=== PATIENT | female | born 1990 | race Caucasian/White ===

== ENCOUNTER → 2016-06-15 | Outpatient (REF) | payer OTHER | LOC: M LAB REF 17:00 | PROVIDERS: ATTEND Obstetrics & Gynecology | DX: Z11.3 Encounter for screening for infections with a predominantly sexual mode of transmission (principal) ==

== ENCOUNTER → 2018-08-29 | Outpatient (REF) | payer OTHER ==
[2018-08-29 20:18] LABS: HEMATOCRIT 42.5 % (36.0-47.0); HEMOGLOBIN 14.9 g/dl (12.0-15.5); MEAN CORPUSCULAR HEMOGLOBIN 32.9 pg (27.0-33.0); MEAN CORPUSCULAR HGB CONC 35.1 g/dl (32.0-36.5); MEAN CORPUSCULAR VOLUME 93.8 fl (80.0-96.0); PLATELET COUNT, AUTOMATED 238 10^3/uL (150-450); RED BLOOD COUNT 4.53 10^6/uL (4.00-5.40); WHITE BLOOD COUNT 7.8 10^3/uL (4.0-10.0)
[2018-08-29 20:20] LABS: HCG, SERUM QUANTITATIVE 16530 MIU/ML
[2018-08-30 10:21] LABS: RUBELLA IgG QUALITATIVE IMMUNE (IMMUNE)
[2018-08-30 10:50] LABS: HEPATITIS C VIRUS ABY INDEX < 0.0 INDEX (<0.8)
[2018-08-30 15:07] LABS: HIV 1&2 SCREEN CENTAUR NEGATIVE (NEGATIVE)
== END ==
LOC: M LAB REF 17:24
PROVIDERS: ATTEND Nurse Practitioner Women's Health
DX: O36.80X0 Pregnancy with inconclusive fetal viability, not applicable or unspecified (principal)

== ENCOUNTER → 2018-12-18 | Outpatient (CLI) | payer OTHER ==
--- NOTE | 2018-12-18 10:57 | REP ---
OBSTETRIC SONOGRAPHY: HISTORY: Supervision of . Followup anatomy. FINDINGS: Scanning demonstrates a viable single intrauterine gestation in a cephalic lie. motion is observed and heart rate is recorded at 131 beats per minute. An anterior grade 0 placenta is seen without evidence of previa or abruption. Amniotic fluid is subjectively normal. Closed cervical length is measured at 3.6 cm, viewed transabdominally. No extrauterine abnormalities observed. There has been appropriate interval growth. There is an echogenic focus in the left ventricle, likely chordae tendineae. There is right-sided renal pelviectasis, 6.8 mm in AP dimension. urinary tracts sonography suggested. The following additional anatomic structures are identified today and felt to be unremarkable: cranium, choroid plexus, cavum, cerebellum and posterior fossa, face and profile, lungs, four-chamber heart with left and right ventricular outflow tract views, diaphragm, left-sided stomach, abdominal wall cord insertion, three-vessel umbilical cord, urinary bladder, spine, upper and lower extremities. BIOMETRY CHART: BPD 5.5 cm = 22 weeks 5 days Head circumference 19.5 cm = 21 weeks 5 days Abdominal circumference 17.1 cm = 22 weeks 1 day Femur length 3.8 cm = 22 weeks 1 day Humeral length 3.6 cm = 22 weeks 3 days Cerebellar diameter 2.5 cm = 22 weeks 6 days HC/AC ratio normal 1.14 Cephalic index normal 0.80 Estimated weight 474 grams, 1 pound 0 ounces, 30th percentile for 22 weeks 4 days. IMPRESSION: Viable single intrauterine gestation at 22 weeks 2 days by today's composite sonographic criteria. Expected gestational age estimate based on prior sonography is 22 weeks 3 days. DMITRY by prior sonography, April 20, 2019. renal pyelectasis is observed on the right kidney, 6.8 mm in AP dimension. urinary tracts sonography suggested. Electronically Signed by Garfield Al MD 12/18/2018 08:56 P
== END ==
LOC: M RAD 06:12
PROVIDERS: ATTEND Obstetrics & Gynecology
DX: O28.5 Abnormal chromosomal and genetic finding on antenatal screening of mother (principal); Z36.89 Encounter for other specified antenatal screening; Z3A.22 22 weeks gestation of pregnancy

== ENCOUNTER → 2019-01-16 | Outpatient (CLI) | payer OTHER ==
[2019-01-16 13:45] LABS: HEMATOCRIT 37.8 % (36.0-47.0); HEMOGLOBIN 13.2 g/dl (12.0-15.5); MEAN CORPUSCULAR HEMOGLOBIN 33.3 pg (27.0-33.0); MEAN CORPUSCULAR HGB CONC 34.9 g/dl (32.0-36.5); MEAN CORPUSCULAR VOLUME 95.5 fl (80.0-96.0); PLATELET COUNT, AUTOMATED 221 10^3/uL (150-450); RED BLOOD COUNT 3.96 10^6/uL (4.00-5.40); WHITE BLOOD COUNT 8.5 10^3/uL (4.0-10.0)
== END ==
LOC: M SMT 08:58
PROVIDERS: ATTEND Obstetrics & Gynecology
DX: Z34.02 Encounter for supervision of normal first pregnancy, second trimester (principal)

== ENCOUNTER 2019-04-23 07:11 | Inpatient (IN) | payer OTHER ==
[~2019-04-23] VITALS: Ht 162.6 cm; Wt 72.9 kg
[2019-04-23] VITALS (18 sets, daily range): BP systolic 100–141; BP diastolic 55–89
--- NOTE | 2019-04-23 08:07 | HPEPDOC ---
Obstetrical History & Physical General Date of Admission Apr 23, 2019 at 07:11 History of Present Illness Patient is a 29 year old female who present to the labor floor for inducti on of labor for social reasons. Patient is at 40w4d with EDC of 04/19/19 based on LNMP and confirmed by first trimester ultrasound. She denies vaginal bleeding and LOF. Fetus has been active. PN care initiated at [facility] in first trimester. PN course uncomplicated. 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: Other (LGSIL 2015) Past Medical History Medical History Asthma Family History Significant Family History: Other (varicosities) Social History Social history Denies tobacco, EtOH or illicit drug use during Marital Status: Family situation: Spouse/partner home Psychosocial History: No pertinent psych hx * Smoker: non-smoker Alcohol: occationally (prior to , none during) Imunizations Tdap status: current Influenza Status: declined Allergies Coded Allergies: No Known Allergies (Unverified , 04/23/19) Medications Scheduled Prenat 115/Iron Fum/Folic/Dss ( 19 Tablet) 1 Each Tablet, 1 TAB PO DAILY Scheduled PRN Albuterol Sulf (Albuterol Sulfate) 2.5 Mg/3 Ml Vial.neb, 2.5 MG INH PRN PRN for SHORTNESS OF BREATH Physical Examination Physical Examination GENERAL: Alert and oriented times three. BREAST: . ABDOMEN: Gravid and non-tender to touch. FETUS: Is fetus is vertex (VTX) by [place]. HEART RATE: Regular rate and rhythm. LUNGS: Clear to auscultation (CTA). Cervix: 1 cm/50%/ -2/ moderate texture EXTREMITIES: No edema. Laboratory Data 24H LABS Laboratory Tests 2 04/23/19 07:17: Serology Scanned Report Hepatitis B Testing CBC/BMP HCT.HBG/Platelets: 37.8/13.2/221 Urine Culture: No Growth Pertinent Laboratoy Data Blood Type: B+ RBC Antibody Screen: Negative HIV: Negative Hepatitis B: Negative Hepatitis C: Negative Rapid Plasma Reagin: Nonreactive Rubella: Immune Varicella: Immune (by history of chicken pox) Chlamydia/Gonorrhea: Negative Group B Streptococcus: Negative Glucose Tolerance Test: 63 Anatomy Ultrasound Placenta Location: Anterior Normal Anatomy: Yes Placenta Previa: No Steroid Therapy Steroid Therapy: No Vaginal Examination Dilation: 1cm Effacement: 50% Station: -2 Cervical Consistency: Medium Cervical Position: Posterior Presentation: Cephalic presentation Position: Vertex (occiput) Assessment Accelerations: Positive Tocometer Contractions: Yes Frequency: irregular Strength: patient denies CTX's Assessment/Plan Assessment Patient is a 29-year-old (G)1 para (P)0 at 40+0 weeks by 7-week ultrasound. Presents to Labor and Delivery (L&D) for induction of labor. Plan Admit and orient. Hhas and consent. Diet: regular Group B Streptococcus (GBS) negative. Labs and intravenous (IV) per unit protocol. Counseled on Pitocin and induction of labor (IOL). Anticipate normal spontaneous delivery (). C-S as appropriate. Plan is to start induction with misoprostol and continue to monitor the patient. Patient would like an epidural when the time comes. Patient will be on monitoring for at least 1 hour after each dose of misoprostol. GME ATTESTATION GME ATTESTATION My faculty preceptor for this patient encounter was physically present during the encounter and was fully available. All aspects of the patient interview, examination, medical decision making process, and medical care plan development were reviewed and approved by the faculty preceptor. The faculty preceptor is aware and concurs with the plan as stated in the body of this note and will attest to such by his/her cosignature. GONZALES KRAUS DO Apr 23, 2019 08:07 FELIX SIDHU CNM Apr 23, 2019 11:41
[2019-04-23] MEDS ORDERED: PREN29TA4 PO (08:27)
[2019-04-23] MEDS ORDERED: ALBU83IN INH (08:28)
[2019-04-23 08:58] LABS: HEMATOCRIT 38.7 % (36.0-47.0); HEMOGLOBIN 13.5 g/dl (12.0-15.5); MEAN CORPUSCULAR HEMOGLOBIN 32.1 pg (27.0-33.0); MEAN CORPUSCULAR HGB CONC 34.9 g/dl (32.0-36.5); MEAN CORPUSCULAR VOLUME 92.1 fl (80.0-96.0); PLATELET COUNT, AUTOMATED 192 10^3/uL (150-450); WHITE BLOOD COUNT 10.7 10^3/uL (4.0-10.0)
[2019-04-23] MEDS: miSOPROStol 50 MCG 1/2 TAB (S0191) PO SCH ×2 (09:12→13:16)
[2019-04-23] MEDS ORDERED: OXYTOCIN DRIP 30 UNITS in IV 1 EA IV SCH (19:00)
[2019-04-23] MEDS ORDERED: BUTORPHANOL 2 MG/ML INJ (J0595) IV ONE (23:45)
[2019-04-23] MEDS ORDERED: PROMETHAZINE INJ 25 MG/ML VIAL (J2550) IV ONE (23:45)
[2019-04-23] MEDS ORDERED: BUTORPHANOL 2 MG/ML INJ (J0595) As Ordered ONE (23:49)
[2019-04-24] VITALS (55 sets, daily range): BP systolic 95–154; BP diastolic 53–86
[2019-04-24] MEDS: LR 1,000 ML IV SCH ×2 (11:37→18:16)
[2019-04-24] MEDS ORDERED: FENTANYL 2MCG/ML ROPIVACAINE 0.2% IN 0.9% NACL 100ML IVBAG As Ordered ONE (11:44)
[2019-04-24] MEDS ORDERED: NALOXONE INJ 0.4 MG/1 ML VIAL (J2310) IV PRN (14:00)
[2019-04-24] MEDS ORDERED: ONDANSETRON 4MG/2ML VIAL (J2405) IV PRN (14:00)
[2019-04-24] MEDS ORDERED: EPIDURAL COMMENT XX SCH (14:00)
[2019-04-24] MEDS ORDERED: REFRIGERATOR IV KEYS XX PRN (14:00)
[2019-04-24] MEDS ORDERED: ePHEDrine SULFATE 25 MG/5 ML(5MG/ML) SYRINGE IV PRN (14:00)
[2019-04-24] MEDS ORDERED: EPIDURAL/PCA KEYS XX PRN (14:00)
[2019-04-24] MEDS ORDERED: FENTANYL/ROPIVACAINE/NACL BAG 100 ML EPIDURAL SCH (14:00)
[2019-04-24] MEDS ORDERED: diphenhydrAMINE INJ 50MG/ML VIAL (J1200) IV PRN (14:00)
--- NOTE | 2019-04-24 16:10 | IPNPDOC ---
Obstetrical Progress Note Date of Service Apr 24, 2019 Subjective 29-year-old 1 at 41 weeks undergoing induction labor. Doing well following her epidural Objective Vital Signs Date Time Temp Pulse Resp B/P (MAP) Pulse Ox O2 Delivery O2 Flow Rate FiO2 04/24/19 15:09 99.3 86 18 128/76 (93) 04/24/19 00:06 Room Air 04/23/19 10:15 98 Assessment Variability: Moderate Accelerations: Positive Decelerations: None Heart Rate Tracing: Category I Tocometer Contractions: Yes Frequency: regular Sterile Vaginal Examination Dilation: 3 cm Effacement (%): 90% Station: -2 Cervical Consistency: Soft Cervical Position: Anterior Postion/Presentation: Cephalic presentation Assessment and Plan Status: Reassuring (AROM clear fluid) BELLA QUINTANA MD. Apr 24, 2019 16:10
[2019-04-24] MEDS ORDERED: OXYTOCIN DRIP 30 UNITS in IV 1 EA IV SCH (23:16)
--- NOTE | 2019-04-24 23:21 | DNPDOC ---
[facility] Delivery Note Delivery Note DATE OF DELIVERY: 04/24/2019 TIME OF :, 2300 GENDER: Female. APGARS:, 9 and 9. WEIGHT:, 3130 grams or 6 pounds 14 ounces. LACERATIONS: Frst-degree midline laceration ANESTHESIA: Epidural. COUNTS: 5 laparotomy sponges accounted for prior to after delivery. One sharps removed delivery field. DELIVERY NOTE: On 04/24/2019, Mrs. Medina 29-year-old 1, now para 1, had a spontaneous vaginal delivery of viable female , Apgars, 9 and 9, and weight was 3130 g or 6 lbs. 14 oz. Head was delivered [occiput anterior (OA). Nuchal cord was manually reduced followed by delivery of the shoulders and corpus. was handed to mom with a good cry. Cord was clamped times two and was cut by the father of baby under my direction. Placenta was then drained and delivered grossly intact. A premixed bag of 500 mL of normal saline with 30 units of Pitocin was then bolused along with uterine massage until the uterus was firm. On inspection,. There was a first-degree midline laceration which was repaired with 3-0 Vicryl repeat. On reinspection, cervix, vagina, perineum was grossly intact and hemostatic. Mom and baby in recovery on stable condition. The couple has decided to maintain the daughter, BELLA Carmona MD. Apr 24, 2019 23:21
[2019-04-24] MEDS ORDERED: MOM 30ML SUSPENSION UDC PO PRN (23:30)
[2019-04-24] MEDS ORDERED: RHOGAM 300 MCG (1500 IU) INJ (J2790) IM SCH (23:30)
[2019-04-24] MEDS ORDERED: IBUPROFEN 800 MG TAB PO PRN (23:30)
[2019-04-24] MEDS ORDERED: IBUPROFEN 600 MG TAB PO PRN (23:30)
[2019-04-24] MEDS ORDERED: ANUSOL HC CREAM 30GM TOP PRN (23:30)
[2019-04-24] MEDS ORDERED: MEASLES,MUMPS,RUBELLA VACCINE INJ (MMR-II) (90707) SC SCH (23:30)
[2019-04-24] MEDS ORDERED: DOCUSATE SODIUM 100 MG CAP PO PRN (23:30)
[2019-04-24] MEDS ORDERED: ACETAMINOPHEN TAB 650MG DOSE (2X325MG) PO PRN (23:30)
[2019-04-24] MEDS ORDERED: DIBUCAINE 1% OINTMENT 30GM TOP PRN (23:30)
[2019-04-24] MEDS ORDERED: METHYLERGONOVINE MALEATE 0.2 MG TAB PO PRN (23:30)
[2019-04-25] MEDS: ACETAMINOPHEN 500 MG TAB PO PRN ×4 (00:52→23:37)
[2019-04-25 02:00] VITALS: BP 115/69
[2019-04-25 06:00] VITALS: BP 120/72
--- NOTE | 2019-04-25 09:14 | IPNPDOC ---
Text Note Date of Service The patient was seen on 04/25/19. NOTE Day 1 S/p vaginal delivery; uncomplicated S:Patient is a 29-year-old G1 now P1 female who is 1 day . She does not have any acute complaints. Patient's pain is well controlled. Patient has mild cramping and spotting. Patient is able to handle it without difficulty. Patient has been able to tolerate a normal diet. She is able to use the bathroom without difficulty. Patient denies any tremors breath or leg tenderness. O: vitals see below Abd: Fundal height is 1 cm below the umbilicus and firm but nontender Ext: No edema or tenderness A/P: 29 yo G1 now P 1. 1 s/p vaginal delivery. Hemodynamically stable, afebrile, good pain control. Recovering well. -Routine care -Anticipate discharge tomorrow VS,Fishbone, I+O VS, Fishbone, I+O Vital Signs Date Time Temp Pulse Resp B/P (MAP) Pulse Ox O2 Delivery O2 Flow Rate FiO2 04/25/19 06:00 98.1 75 20 120/72 (88) 97 Room Air I&O- Last 24 Hours up to 6 AM 04/25/19 06:00 Intake Total 2360 ml Output Total 2200 ml Balance 160 ml GME ATTESTATION GME ATTESTATION My faculty preceptor for this patient encounter was physically present during the encounter and was fully available. All aspects of the patient interview, examination, medical decision making process, and medical care plan development were reviewed and approved by the faculty preceptor. The faculty preceptor is aware and concurs with the plan as stated in the body of this note and will attest to such by his/her cosignature. GONZALES KRAUS DO Apr 25, 2019 09:14 BELLA QUINTANA MD. May 03, 2019 15:04
[2019-04-25] MEDS: PRENATAL VITAMINS CHEWABLE TABLET PO SCH (09:36)
[2019-04-25 18:00] VITALS: BP 123/75
[2019-04-26 06:00] VITALS: BP 122/81
[2019-04-26] MEDS: PRENATAL VITAMINS CHEWABLE TABLET PO SCH (07:23)
[2019-04-26] MEDS: ACETAMINOPHEN 500 MG TAB PO PRN (07:24)
== END 2019-04-26 12:14 | disposition home or self-care (01) | DRG 560 ==
LOC: M LDI 07:11 → M OBS 04-25 02:23
PROVIDERS: ADMIT Specialist; ATTEND Specialist
PROC: 3E0DXGC Introduction of Other Therapeutic Substance into Mouth and Pharynx, External Approach (ICD-10-PCS; 2019-04-23)
PROC: 10E0XZZ Delivery of Products of Conception, External Approach (ICD-10-PCS; principal; 2019-04-24)
PROC: 0HQ9XZZ Repair Perineum Skin, External Approach (ICD-10-PCS; 2019-04-24)
DX: O48.0 Post-term pregnancy (principal); O69.81X0 Labor and delivery complicated by cord around neck, without compression, not applicable or unspecified; Z37.0 Single live birth; Z3A.40 40 weeks gestation of pregnancy; O70.0 First degree perineal laceration during delivery

== ENCOUNTER → 2019-10-15 | Outpatient (REF) | payer OTHER ==
[~2019-10-15] MED LIST: ALBU83IN INH; PREN29TA4 PO
== END ==
LOC: M SFHCWAGY 10:14
PROVIDERS: ATTEND Obstetrics & Gynecology
DX: Z01.419 Encounter for gynecological examination (general) (routine) without abnormal findings (principal); Z12.4 Encounter for screening for malignant neoplasm of cervix

== ENCOUNTER 2020-10-27 10:31 | Emergency (ER) | payer OTHER ==
[~2020-10-27] VITALS: Ht 162.6 cm; Wt 63.7 kg
[2020-10-27 11:09] LABS: HEMATOCRIT 42.2 % (36.0-47.0); HEMOGLOBIN 14.6 g/dl (12.0-15.5); MEAN CORPUSCULAR HEMOGLOBIN 34.8 pg (27.0-33.0); MEAN CORPUSCULAR HGB CONC 34.6 g/dl (32.0-36.5); MEAN CORPUSCULAR VOLUME 100.5 fl (80.0-96.0); PLATELET COUNT, AUTOMATED 240 10^3/uL (150-450); WHITE BLOOD COUNT 5.5 10^3/uL (4.0-10.0)
[2020-10-27 12:13] LABS: APPEARANCE, URINE CLEAR (CLEAR); BACTERIA, URINE AUTO NEGATIVE (NEGATIVE); BILIRUBIN, URINE AUTO NEGATIVE (NEGATIVE); BLOOD, URINE BLOOD 3+ (NEGATIVE); COLOR, URINE COLORLESS (YELLOW); GLUCOSE, URINE (UA) AUTO NEGATIVE (NEGATIVE); KETONE, URINE AUTO NEGATIVE (NEGATIVE); LEUKOCYTE ESTERASE, URINE AUTO NEGATIVE (NEGATIVE); NITRITE, URINE AUTO NEGATIVE (NEGATIVE); PROTEIN, URINE AUTO NEGATIVE (NEGATIVE); RBC, URINE AUTO 0 /HPF (0-3); SQUAMOUS EPITHELIAL CELL UR AU 0 /HPF (0-6); UROBILINOGEN, URINE AUTO 0.2 mg/dL (0.0-2.0); WBC, URINE AUTO 0 /HPF (0-3)
--- NOTE | 2020-10-27 12:46 | REP ---
INDICATION: vaginal bleeding, positive hcg. COMPARISON: None. TECHNIQUE: Transvesical and transvaginal imaging FINDINGS: Uterus measures 6.3 x 3.1 x 4 cm. The parenchymal echo pattern is within normal limits. The endometrial echo complex is smooth and unremarkable appearing measuring 5 mm in its greatest thickness. There is no free fluid in cul-de-sac. The right ovary measures 2.6 x 1.5 x 1.8 cm and is within normal limits with an RI 0.53 Left ovary measures 2.5 x 1.3 x 2.8 cm and is within normal limits with an RI 0.45 IMPRESSION: Pelvic ultrasonography is within normal limits. There is no evidence of an intrauterine or extrauterine . <Electronically signed by Ganga Dsouza > 10/27/20 0248
[2020-10-27 13:00] VITALS: BP 133/85
== END 2020-10-27 13:04 | disposition home or self-care (01) ==
LOC: M ED 10:31
DX: O20.0 Threatened abortion (principal); O26.891 Other specified pregnancy related conditions, first trimester; M54.5 Low back pain; O26.859 Spotting complicating pregnancy, unspecified trimester; O99.340 Other mental disorders complicating pregnancy, unspecified trimester; F41.9 Anxiety disorder, unspecified; Z3A.00 Weeks of gestation of pregnancy not specified

== ENCOUNTER → 2021-03-03 | Outpatient (CLI) | payer OTHER ==
[2021-03-03 15:46] LABS: HEMATOCRIT 43.4 % (36.0-47.0); HEMOGLOBIN 15.4 g/dl (12.0-15.5); MEAN CORPUSCULAR HGB CONC 35.5 g/dl (32.0-36.5); MEAN CORPUSCULAR VOLUME 98.6 fl (80.0-96.0); PLATELET COUNT, AUTOMATED 346 10^3/uL (150-450); WHITE BLOOD COUNT 11.5 10^3/uL (4.0-10.0)
[2021-03-03 16:59] LABS: HEPATITIS C VIRUS ABY INDEX < 0.0 INDEX (<0.8); HIV 1&2 SCREEN CENTAUR NEGATIVE (NEGATIVE)
[2021-03-03 18:05] LABS: GC DNA AMPLIFICATION NEGATIVE (NEGATIVE)
== END ==
LOC: M PLALAB 13:52
PROVIDERS: ATTEND Advanced Practice Midwife
DX: Z36.9 Encounter for antenatal screening, unspecified (principal); O99.511 Diseases of the respiratory system complicating pregnancy, first trimester; Z3A.00 Weeks of gestation of pregnancy not specified

== ENCOUNTER → 2021-04-04 | Outpatient (CLI) | payer OTHER | LOC: M PLALAB 14:40 | PROVIDERS: ATTEND Advanced Practice Midwife | DX: Z34.81 Encounter for supervision of other normal pregnancy, first trimester (principal); Z3A.00 Weeks of gestation of pregnancy not specified ==

== ENCOUNTER → 2021-06-09 | Outpatient (CLI) | payer OTHER | LOC: M WHC 09:42 | PROVIDERS: ATTEND Obstetrics & Gynecology | DX: Z34.82 Encounter for supervision of other normal pregnancy, second trimester (principal); Z3A.20 20 weeks gestation of pregnancy ==

== ENCOUNTER → 2021-07-13 | Outpatient (CLI) | payer OTHER ==
[2021-07-13 17:29] LABS: HEMATOCRIT 35.9 % (36.0-47.0); HEMOGLOBIN 12.4 g/dl (12.0-15.5); MEAN CORPUSCULAR HEMOGLOBIN 32.6 pg (27.0-33.0); MEAN CORPUSCULAR HGB CONC 34.5 g/dl (32.0-36.5); MEAN CORPUSCULAR VOLUME 94.5 fl (80.0-96.0); PLATELET COUNT, AUTOMATED 231 10^3/uL (150-450)
[2021-07-13 19:11] LABS: GC DNA AMPLIFICATION NEGATIVE (NEGATIVE)
== END ==
LOC: M PLALAB 14:00
PROVIDERS: ATTEND Obstetrics & Gynecology
DX: Z34.80 Encounter for supervision of other normal pregnancy, unspecified trimester (principal)

== ENCOUNTER → 2021-07-19 | Outpatient (CLI) | payer OTHER | LOC: M WHC 13:17 | PROVIDERS: ATTEND Obstetrics & Gynecology | DX: Z34.80 Encounter for supervision of other normal pregnancy, unspecified trimester (principal); Z3A.25 25 weeks gestation of pregnancy ==

== ENCOUNTER → 2021-10-05 | Outpatient (CLI) | payer OTHER ==
[~2021-10-05] MED LIST changes: +ALBU2.5V10 INH; -ALBU83IN INH
== END ==
LOC: M WHC 06:32
PROVIDERS: ATTEND Advanced Practice Midwife
DX: O99.513 Diseases of the respiratory system complicating pregnancy, third trimester (principal)

== ENCOUNTER → 2021-10-07 | Outpatient (REF) | payer OTHER | LOC: M SFHCWAGY 10:12 | PROVIDERS: ATTEND Obstetrics & Gynecology | DX: O99.513 Diseases of the respiratory system complicating pregnancy, third trimester (principal) ==

== ENCOUNTER → 2022-03-29 | Outpatient (REF) | payer OTHER ==
[~2022-03-29] MED LIST changes: +PULM90IN INH
== END ==
LOC: M SFHCWAGY 12:56
PROVIDERS: ATTEND Obstetrics & Gynecology
DX: Z12.4 Encounter for screening for malignant neoplasm of cervix (principal)

== ENCOUNTER → 2024-03-05 | Outpatient (CLI) | payer OTHER ==
[~2024-03-05] MED LIST changes: +BUDE90AE INH; -PULM90IN INH
[2024-03-05 16:32] LABS: INR 1.4; PROTHROMBIN TIME 17.4 SECONDS (12.5-14.5)
[2024-03-05 17:50] LABS: ALBUMIN 2.4 G/DL (3.2-5.2); ALKALINE PHOSPHATASE 171 U/L (35-104); ALT/SGPT 43 U/L (7.0-40); AST/SGOT 183 U/L (<34); BILIRUBIN,DIRECT 13.8 MG/DL (<0.4); BILIRUBIN,TOTAL 17.9 MG/DL (0.3-1.2); BLOOD UREA NITROGEN 6 MG/DL (9-23); CALCIUM LEVEL 8.6 MG/DL (8.5-10.1); CARBON DIOXIDE LEVEL 28 MMOL/L (20-31); CHLORIDE LEVEL 99 MMOL/L (98-107); CREATININE FOR GFR 0.67 MG/DL (0.55-1.30); GLOMERULAR FILTRATION RATE > 60.0 (>60); GLUCOSE, FASTING 106 MG/DL (60-100); POTASSIUM SERUM 3.6 MMOL/L (3.5-5.1); SODIUM LEVEL 135 MMOL/L (136-145)
== END ==
LOC: M WUC 14:38
PROVIDERS: ATTEND Nurse Practitioner Family
DX: R94.5 Abnormal results of liver function studies (principal); L29.9 Pruritus, unspecified

== ENCOUNTER → 2024-03-10 | Outpatient (CLI) | payer OTHER ==
[~2024-03-10] MED LIST changes: -BUDE90AE INH; +PULM90IN INH
[2024-03-10 17:14] LABS: INR 1.4; PROTHROMBIN TIME 17.4 SECONDS (12.5-14.5)
[2024-03-10 17:57] LABS: ALBUMIN 2.2 G/DL (3.2-5.2); ALKALINE PHOSPHATASE 169 U/L (35-104); ALT/SGPT 49 U/L (7.0-40); AST/SGOT 212 U/L (<34); BILIRUBIN,TOTAL 23.2 MG/DL (0.3-1.2); BLOOD UREA NITROGEN 8 MG/DL (9-23); CALCIUM LEVEL 8.7 MG/DL (8.5-10.1); CARBON DIOXIDE LEVEL 29 MMOL/L (20-31); CHLORIDE LEVEL 93 MMOL/L (98-107); CREATININE FOR GFR 0.73 MG/DL (0.55-1.30); GLOMERULAR FILTRATION RATE > 60.0 (>60); GLUCOSE, FASTING 97 MG/DL (60-100); POTASSIUM SERUM 4.4 MMOL/L (3.5-5.1); SODIUM LEVEL 133 MMOL/L (136-145); TOTAL PROTEIN 6.3 G/DL (5.7-8.2)
== END ==
LOC: M WUC 12:02
PROVIDERS: ATTEND Nurse Practitioner Family
DX: K70.11 Alcoholic hepatitis with ascites (principal)

== ENCOUNTER → 2024-03-19 | Outpatient (CLI) | payer OTHER ==
[~2024-03-19] MED LIST changes: +BUDE90AE INH; -PULM90IN INH
[2024-03-19 09:56] LABS: HEMATOCRIT 36.8 % (36.0-47.0); HEMOGLOBIN 12.3 g/dl (12.0-15.5); MEAN CORPUSCULAR HEMOGLOBIN 37.5 pg (27.0-33.0); MEAN CORPUSCULAR HGB CONC 33.4 g/dl (32.0-36.5); MEAN CORPUSCULAR VOLUME 112.2 fl (80.0-96.0); PLATELET COUNT, AUTOMATED 209 10^3/uL (150-450); RED BLOOD COUNT 3.28 10^6/uL (4.00-5.40); WHITE BLOOD COUNT 17.4 10^3/uL (4.0-10.0)
[2024-03-19 09:58] LABS: ALBUMIN 2.3 G/DL (3.2-5.2); ALKALINE PHOSPHATASE 162 U/L (35-104); ALT/SGPT 54 U/L (7.0-40); AST/SGOT 179 U/L (<34); BLOOD UREA NITROGEN 22 MG/DL (9-23); CALCIUM LEVEL 8.9 MG/DL (8.5-10.1); CARBON DIOXIDE LEVEL 29 MMOL/L (20-31); CHLORIDE LEVEL 105 MMOL/L (98-107); CREATININE FOR GFR 0.64 MG/DL (0.55-1.30); GLOMERULAR FILTRATION RATE > 60.0 (>60); GLUCOSE, FASTING 96 MG/DL (60-100); POTASSIUM SERUM 3.5 MMOL/L (3.5-5.1); SODIUM LEVEL 139 MMOL/L (136-145); TOTAL PROTEIN 6.3 G/DL (5.7-8.2)
[2024-03-19 10:07] LABS: INR 1.26; PROTHROMBIN TIME 16.1 SECONDS (12.5-14.5)
== END ==
LOC: M WUC 08:18
PROVIDERS: ATTEND Nurse Practitioner Family
DX: K70.11 Alcoholic hepatitis with ascites (principal)

== ENCOUNTER → 2024-03-27 | Outpatient (CLI) | payer OTHER ==
[2024-03-27 10:37] LABS: BASO % 0.1 % (0.0-1.0); EOS # 0.1 10^3/uL (0.0-0.5); EOS % 0.7 % (0.0-3.0); HEMATOCRIT 36.8 % (36.0-47.0); HEMOGLOBIN 12.1 g/dl (12.0-15.5); LYMPH % 6.8 % (24.0-44.0); MEAN CORPUSCULAR HEMOGLOBIN 37.5 pg (27.0-33.0); MEAN CORPUSCULAR HGB CONC 32.9 g/dl (32.0-36.5); MEAN CORPUSCULAR VOLUME 113.9 fl (80.0-96.0); MONO # 0.6 10^3/uL (0.0-0.8); MONO % 4.3 % (2.0-8.0); NEUTROPHILS # 12.1 10^3/uL (1.5-8.5); NEUTROPHILS % 87.5 % (36.0-66.0); PLATELET COUNT, AUTOMATED 154 10^3/uL (150-450); RED BLOOD COUNT 3.23 10^6/uL (4.00-5.40); WHITE BLOOD COUNT 13.9 10^3/uL (4.0-10.0)
[2024-03-27 10:48] LABS: INR 1.18; PARTIAL THROMBOPLASTIN TIME 29.2 SECONDS (24.8-34.2); PROTHROMBIN TIME 15.3 SECONDS (12.5-14.5)
[2024-03-27 11:10] LABS: ALBUMIN 3.4 G/DL (3.2-5.2); ALKALINE PHOSPHATASE 151 U/L (35-104); ALT/SGPT 134 U/L (7.0-40); AST/SGOT 290 U/L (<34); BILIRUBIN,TOTAL 5.8 MG/DL (0.3-1.2); BLOOD UREA NITROGEN 20 MG/DL (9-23); CALCIUM LEVEL 9.5 MG/DL (8.5-10.1); CARBON DIOXIDE LEVEL 27 MMOL/L (20-31); CHLORIDE LEVEL 103 MMOL/L (98-107); CREATININE FOR GFR 0.72 MG/DL (0.55-1.30); GLOMERULAR FILTRATION RATE > 60.0 (>60); GLUCOSE, FASTING 93 MG/DL (60-100); POTASSIUM SERUM 3.9 MMOL/L (3.5-5.1); SODIUM LEVEL 142 MMOL/L (136-145)
== END ==
LOC: M WUC 08:49
PROVIDERS: ATTEND Internal Medicine Gastroenterology
DX: K70.11 Alcoholic hepatitis with ascites (principal)

== ENCOUNTER → 2024-04-11 | Outpatient (CLI) | payer OTHER ==
[2024-04-11 11:15] LABS: BASO % 0.4 % (0.0-1.0); EOS # 0.1 10^3/uL (0.0-0.5); HEMATOCRIT 39.9 % (36.0-47.0); HEMOGLOBIN 13.5 g/dl (12.0-15.5); LYMPH # 1.2 10^3/uL (1.5-5.0); LYMPH % 10.2 % (24.0-44.0); MEAN CORPUSCULAR HGB CONC 33.8 g/dl (32.0-36.5); MEAN CORPUSCULAR VOLUME 109.3 fl (80.0-96.0); MONO # 0.6 10^3/uL (0.0-0.8); MONO % 5.1 % (2.0-8.0); NEUTROPHILS # 9.4 10^3/uL (1.5-8.5); NEUTROPHILS % 82.2 % (36.0-66.0); PLATELET COUNT, AUTOMATED 222 10^3/uL (150-450); RED BLOOD COUNT 3.65 10^6/uL (4.00-5.40); WHITE BLOOD COUNT 11.4 10^3/uL (4.0-10.0)
[2024-04-11 11:44] LABS: ALBUMIN 3.6 G/DL (3.2-5.2); ALKALINE PHOSPHATASE 125 U/L (35-104); ALT/SGPT 91 U/L (7.0-40); AST/SGOT 100 U/L (<34); BILIRUBIN,TOTAL 2.9 MG/DL (0.3-1.2); BLOOD UREA NITROGEN 11 MG/DL (9-23); CALCIUM LEVEL 10.3 MG/DL (8.5-10.1); CARBON DIOXIDE LEVEL 27 MMOL/L (20-31); CHLORIDE LEVEL 102 MMOL/L (98-107); CREATININE FOR GFR 0.68 MG/DL (0.55-1.30); GLOMERULAR FILTRATION RATE > 60.0 (>60); GLUCOSE, FASTING 124 MG/DL (60-100); POTASSIUM SERUM 4.4 MMOL/L (3.5-5.1); SODIUM LEVEL 137 MMOL/L (136-145); TOTAL PROTEIN 7.4 G/DL (5.7-8.2)
[2024-04-13 08:48] LABS: INR 1.23; PROTHROMBIN TIME 15.8 SECONDS (12.5-14.5)
== END ==
LOC: M WUC 09:24
PROVIDERS: ATTEND Internal Medicine Gastroenterology
DX: K70.11 Alcoholic hepatitis with ascites (principal); L29.9 Pruritus, unspecified; R94.5 Abnormal results of liver function studies

== ENCOUNTER → 2024-04-23 | Outpatient (CLI) | payer OTHER ==
[2024-04-23 16:21] LABS: BASO % 0.5 % (0.0-1.0); EOS # 0.3 10^3/uL (0.0-0.5); EOS % 3.9 % (0.0-3.0); HEMATOCRIT 39.4 % (36.0-47.0); HEMOGLOBIN 13.7 g/dl (12.0-15.5); LYMPH % 23.8 % (24.0-44.0); MEAN CORPUSCULAR HEMOGLOBIN 35.7 pg (27.0-33.0); MEAN CORPUSCULAR HGB CONC 34.8 g/dl (32.0-36.5); MEAN CORPUSCULAR VOLUME 102.6 fl (80.0-96.0); MONO # 0.9 10^3/uL (0.0-0.8); MONO % 10.3 % (2.0-8.0); NEUTROPHILS # 5.1 10^3/uL (1.5-8.5); NEUTROPHILS % 61.1 % (36.0-66.0); PLATELET COUNT, AUTOMATED 237 10^3/uL (150-450); RED BLOOD COUNT 3.84 10^6/uL (4.00-5.40); WHITE BLOOD COUNT 8.3 10^3/uL (4.0-10.0)
[2024-04-23 16:26] LABS: INR 1.17; PROTHROMBIN TIME 15.2 SECONDS (12.5-14.5)
[2024-04-23 16:49] LABS: ALKALINE PHOSPHATASE 109 U/L (35-104); ALT/SGPT 48 U/L (7.0-40); AST/SGOT 60 U/L (<34); BILIRUBIN,TOTAL 2.5 MG/DL (0.3-1.2); BLOOD UREA NITROGEN 15 MG/DL (9-23); CALCIUM LEVEL 10.4 MG/DL (8.5-10.1); CARBON DIOXIDE LEVEL 27 MMOL/L (20-31); CHLORIDE LEVEL 99 MMOL/L (98-107); CREATININE FOR GFR 0.82 MG/DL (0.55-1.30); GLOMERULAR FILTRATION RATE > 60.0 (>60); GLUCOSE, FASTING 87 MG/DL (60-100); POTASSIUM SERUM 4.2 MMOL/L (3.5-5.1); SODIUM LEVEL 135 MMOL/L (136-145); TOTAL PROTEIN 8.2 G/DL (5.7-8.2)
== END ==
LOC: M WUC 11:53
PROVIDERS: ATTEND Internal Medicine Gastroenterology
DX: K70.11 Alcoholic hepatitis with ascites (principal)

== ENCOUNTER → 2024-04-24 | Outpatient (REF) | payer OTHER | LOC: M LAB REF 12:24 | PROVIDERS: ATTEND Internal Medicine Gastroenterology | DX: K70.11 Alcoholic hepatitis with ascites (principal) ==

== ENCOUNTER → 2024-05-28 | Outpatient (CLI) | payer OTHER ==
[2024-05-28 13:09] LABS: BASO % 0.5 % (0.0-1.0); EOS # 0.3 10^3/uL (0.0-0.5); EOS % 4.1 % (0.0-3.0); HEMATOCRIT 42.9 % (36.0-47.0); LYMPH # 2.2 10^3/uL (1.5-5.0); LYMPH % 33.9 % (24.0-44.0); MEAN CORPUSCULAR HEMOGLOBIN 34.2 pg (27.0-33.0); MEAN CORPUSCULAR VOLUME 97.9 fl (80.0-96.0); MONO # 0.6 10^3/uL (0.0-0.8); MONO % 8.8 % (2.0-8.0); NEUTROPHILS # 3.4 10^3/uL (1.5-8.5); NEUTROPHILS % 52.5 % (36.0-66.0); PLATELET COUNT, AUTOMATED 196 10^3/uL (150-450); RED BLOOD COUNT 4.38 10^6/uL (4.00-5.40); WHITE BLOOD COUNT 6.5 10^3/uL (4.0-10.0)
[2024-05-28 13:19] LABS: INR 1.11; PROTHROMBIN TIME 14.6 SECONDS (12.5-14.5)
[2024-05-28 19:30] LABS: CHLORIDE LEVEL 104 MMOL/L (98-107); POTASSIUM SERUM 3.8 MMOL/L (3.5-5.1); SODIUM LEVEL 141 MMOL/L (136-145)
[2024-05-28 19:33] LABS: ALBUMIN 4.1 G/DL (3.2-5.2); ALKALINE PHOSPHATASE 74 U/L (35-104); ALT/SGPT 22 U/L (7.0-40); AST/SGOT 40 U/L (<34); BILIRUBIN,TOTAL 1.4 MG/DL (0.3-1.2); BLOOD UREA NITROGEN 12 MG/DL (9-23); CARBON DIOXIDE LEVEL 27 MMOL/L (20-31); CREATININE FOR GFR 0.67 MG/DL (0.55-1.30); GLOMERULAR FILTRATION RATE > 60.0 (>60); GLUCOSE, FASTING 96 MG/DL (60-100); TOTAL PROTEIN 7.9 G/DL (5.7-8.2)
== END ==
LOC: M WUC 09:08
PROVIDERS: ATTEND Internal Medicine Gastroenterology
DX: K70.11 Alcoholic hepatitis with ascites (principal); R94.5 Abnormal results of liver function studies

== ENCOUNTER → 2024-08-07 | Outpatient (CLI) | payer OTHER ==
[2024-08-07 12:23] LABS: BASO % 0.3 % (0.0-1.0); EOS # 0.2 10^3/uL (0.0-0.5); HEMATOCRIT 39.6 % (36.0-47.0); LYMPH # 1.5 10^3/uL (1.5-5.0); LYMPH % 25.6 % (24.0-44.0); MEAN CORPUSCULAR HEMOGLOBIN 34.6 pg (27.0-33.0); MEAN CORPUSCULAR HGB CONC 35.4 g/dl (32.0-36.5); MEAN CORPUSCULAR VOLUME 97.8 fl (80.0-96.0); MONO # 0.7 10^3/uL (0.0-0.8); MONO % 12.5 % (2.0-8.0); NEUTROPHILS # 3.4 10^3/uL (1.5-8.5); NEUTROPHILS % 58.4 % (36.0-66.0); PLATELET COUNT, AUTOMATED 158 10^3/uL (150-450); RED BLOOD COUNT 4.05 10^6/uL (4.00-5.40); WHITE BLOOD COUNT 5.7 10^3/uL (4.0-10.0)
[2024-08-07 12:27] LABS: INR 1.14; PARTIAL THROMBOPLASTIN TIME 33.9 SECONDS (24.8-34.2); PROTHROMBIN TIME 14.9 SECONDS (12.5-14.5)
[2024-08-07 13:42] LABS: ALBUMIN 4.2 G/DL (3.2-5.2); ALKALINE PHOSPHATASE 113 U/L (35-104); ALT/SGPT 79 U/L (7.0-40); AST/SGOT 165 U/L (<34); BILIRUBIN,TOTAL 1.4 MG/DL (0.3-1.2); BLOOD UREA NITROGEN 11 MG/DL (9-23); CALCIUM LEVEL 9.6 MG/DL (8.5-10.1); CARBON DIOXIDE LEVEL 27 MMOL/L (20-31); CHLORIDE LEVEL 102 MMOL/L (98-107); CREATININE FOR GFR 0.56 MG/DL (0.55-1.30); GLOMERULAR FILTRATION RATE > 60.0 (>60); GLUCOSE, FASTING 84 MG/DL (60-100); POTASSIUM SERUM 3.9 MMOL/L (3.5-5.1); SODIUM LEVEL 139 MMOL/L (136-145); TOTAL PROTEIN 7.6 G/DL (5.7-8.2)
[2024-08-07 19:53] LABS: IRON (FE) 77 UG/DL (50-170); PERCENT SATURATION 25.4 % (13.2-45.0); TOTAL IRON BINDING CAPACITY 303 UG/DL (250-425)
[2024-08-07 19:55] LABS: FOLATE 11.5 NG/ML (>5.4); VITAMIN B12 LEVEL 515 PG/ML (211-911)
[2024-08-07 19:56] LABS: FERRITIN 222.7 NG/ML (7.3-270.7)
== END ==
LOC: M WUC 08:52
PROVIDERS: ATTEND Internal Medicine Gastroenterology
DX: K70.11 Alcoholic hepatitis with ascites (principal)

== ENCOUNTER → 2024-08-07 | Outpatient (CLI) | payer OTHER | LOC: M RAD 08:17 | PROVIDERS: ATTEND Internal Medicine Gastroenterology | DX: K70.11 Alcoholic hepatitis with ascites (principal); R16.0 Hepatomegaly, not elsewhere classified; K76.0 Fatty (change of) liver, not elsewhere classified ==